=== PATIENT | female | born 1950 | race Caucasian/White ===

== ENCOUNTER 2022-07-18 10:51 | Emergency (ER) | payer MEDICARE, SELFPAY ==
[2022-07-18 11:24] VITALS: BP 187/81; PULSE 97; RESP 16; TEMP 36.8; O2SAT 98
--- NOTE | 2022-07-18 12:52 | ED.FALL ---
HPI - Fall General Chief Complaint: Fall Stated Complaint: fall, head injury, no blood thinners Time Seen by Provider: 07/18/22 11:30 Source: patient and family Mode of arrival: ambulatory Limitations: no limitations History of Present Illness HPI Narrative: This is a 71 year old female that presents to the ER after a ground level fall last night with head injury. Reports she tripped over a stool and fell forward. She is unsure if she hit her head on the floor or the stool. She did not lose consciousness. She is not on any blood thinners. Has a laceration on her forehead. No other focal injuries or areas of pain. Denies visual changes, vomiting, numbness, or weakness. Related Data Home Medications Medication Instructions Recorded Confirmed No Home Medications 07/18/22 07/18/22 Allergies Allergy/AdvReac Type Severity Reaction Status Date / Time No Known Allergies Allergy Verified 07/18/22 11:24 Review of Systems Review of Systems: CONSTITUTIONAL: Denies fever EYES: Denies visual changes GASTROINTESTINAL: Denies vomiting MUSCULOSKELETAL: Denies back pain, joint pain, or myalgia. NEUROLOGIC: Denies headache, numbness, or weakness. All systems reviewed & are unremarkable except as noted in HPI and below PMFSH Past Medical History Medical History (Updated 07/18/22 @ 13:26 by Katia Moyer PA-C) No active medical problems Social History Social History (Updated 07/18/22 @ 12:55 by Katia Moyer PA-C) Smoking status: Never smoker Exam Narrative: GENERAL: Elderly, well-nourished, and in no acute distress. HEAD: Normocephalic. 3cm irregular, superficial laceration over the mid forehead EYES: PERRLA and EOMI. ENT: Nares clear, no rhinorrhea or epistaxis. Mucous membranes moist. Oropharynx without tonsillar hypertrophy exudate or other lesions. Bilateral TMs pearly soliz non-bulging NECK: Supple. No adenopathy or masses. No midline spinal tenderness CHEST: Clear to auscultation. No respiratory distress. No wheezes rales or rhonchi HEART: Regular rate and rhythm. No murmur heard. Normal peripheral pulses. EXTREMITIES: Normal range of motion. No edema or obvious deformity. Strength equal in bilateral upper and lower extremities (5/5) SKIN: Warm, dry, no rash. NEURO: No focal deficits. Alert and oriented x3. Cranial nerves II through XII grossly intact PSYCH: Normal mood and affect Course Vital Signs Vital signs: Vital Signs Temperature 98.3 F 07/18/22 11:24 Pulse Rate 97 07/18/22 11:24 Respiratory Rate 16 07/18/22 11:24 Blood Pressure 187/81 H 07/18/22 11:24 Pulse Oximetry 98 07/18/22 11:24 Temperature 98.3 F 07/18/22 11:24 Pulse Rate 80 07/18/22 13:00 Respiratory Rate 16 07/18/22 11:24 Blood Pressure 170/81 H 07/18/22 13:00 Pulse Oximetry 98 07/18/22 11:24 Procedures Laceration Laceration 1: Date: 07/18/22 Time: 12:56 Site: face Size (cm): 3 Description: irregular Depth: simple, single layer Local Anesthetic: none Pre-repair: irrigated extensively ====== Skin Level ====== Skin layer closed with: dermabond ====== Subcutaneous Layer ====== ====== Muscle Layer ====== ====== Tendon Layer ====== MDM - Fall MDM Narrative Medical decision making narrative: Patient presents to the emergency department after a ground-level fall last night with a head injury. She denies any vision changes, vomiting or numbness. She is not on any blood thinners. She did not lose consciousness. She is neurovascularly intact today. Due to patient's age and head injury with contusion I did recommend a CT scan of the brain to rule out any intracranial pathology. I explained the reasons for doing so. She refuses at this time. She was instructed to return for any worrisome symptoms. Her laceration was thoroughly irrigated. I did apply some Dermabond to it as it was fairly superficial. She wa
[2022-07-18] MEDS: TETANUS,DIPHTHERIA,AC PERTUSSIS ADULT (0.5 ML) BOOSTRIX IM (12:58)
[2022-07-18 13:00] VITALS: BP 170/81; PULSE 80
== END 2022-07-18 13:41 | disposition home or self-care (01) ==
PROVIDERS: Emergency Provider Physician Assistant
DX: S01.81XA Laceration without foreign body of other part of head, initial encounter (principal); R03.0 Elevated blood-pressure reading, without diagnosis of hypertension; W01.0XXA Fall on same level from slipping, tripping and stumbling without subsequent striking against object, initial encounter; Z23 Encounter for immunization
CPT/HCPCS: 12013; 90471; 90715; 99282

== ENCOUNTER 2024-03-10 11:07 | Emergency (ER) | payer MEDICARE, SELFPAY ==
[2024-03-10 11:09] VITALS: PULSE 93; RESP 18; TEMP 36.4; O2SAT 98
--- NOTE | 2024-03-10 11:39 | ED_ITS ---
HPI - General Adult General Chief complaint: Unspecified Stated complaint: confusion, urinary urgency Time Seen by Provider: 03/10/24 11:24 History of Present Illness HPI narrative: Patient is a 73-year-old female who presents ER with concerns for UTI. Reports she has been having urinary incontinence over last 2 weeks. She has become increasingly confused. She is orient x3 but has missed steps where if she wants some place last week she went thinks she went there yesterday. She has been taking a bladder [id number] supplement try to treat her symptoms. No fevers or chills or sweats. No abdominal pain. No injuries reported. Related Data Allergies Allergy/AdvReac Type Severity Reaction Status Date / Time No Known Allergies Allergy Verified 03/10/24 11:34 Review of Systems Review of Systems: All systems reviewed & are unremarkable except as noted in HPI and below Constitutional: Constitutional: Reports no additional constitutional complaints Gastrointestinal: Gastrointestinal: Reports no additional gastrointestinal complaints Genitourinary: Genitourinary: Reports no additional female genitourinary complaints ON LICENSE OF [facility] Past Medical History Medical History (Updated 03/10/24 @ 15:06 by Marc Hanley MD) TIA (transient ischemic attack) Social History Social History (Updated 07/18/22 @ 12:55 by Katia Moyer PA-C) Smoking status: Never smoker Exam Narrative: GENERAL: Well-appearing, well-nourished, and in no acute distress. HEAD: Normocephalic, atraumatic. ENT: Mucous membranes moist. CHEST: Clear to auscultation. No respiratory distress. HEART: Regular rate and rhythm. Normal peripheral pulses. ABDOMEN: Soft, nontender, nondistended. EXTREMITIES: Normal range of motion. No edema. SKIN: Warm, dry, no rash. NEURO: Alert and oriented x3. PSYCH: Normal mood and affect. Course Vital Signs Vital signs: Vital Signs Temperature 97.5 F L 03/10/24 11:09 Pulse Rate 93 03/10/24 11:09 Respiratory Rate 18 03/10/24 11:09 Pulse Oximetry 98 03/10/24 11:09 Oxygen Delivery Room Air 03/10/24 11:09 Temperature 97.5 F L 03/10/24 11:09 Pulse Rate 64 03/10/24 13:02 Respiratory Rate 12 03/10/24 13:02 Blood Pressure 186/85 H 03/10/24 13:02 Pulse Oximetry 98 03/10/24 13:02 Oxygen Delivery Room Air 03/10/24 11:09 Medical Decision Making Vital Signs Vital Signs: Vital Signs Temperature 97.5 F L 03/10/24 11:09 Pulse Rate 93 03/10/24 11:09 Respiratory Rate 18 03/10/24 11:09 Pulse Oximetry 98 03/10/24 11:09 Oxygen Delivery Room Air 03/10/24 11:09 Temperature 97.5 F L 03/10/24 11:09 Pulse Rate 64 03/10/24 13:02 Respiratory Rate 12 03/10/24 13:02 Blood Pressure 186/85 H 03/10/24 13:02 Pulse Oximetry 98 03/10/24 13:02 Oxygen Delivery Room Air 03/10/24 11:09 Lab Data 03/10/24 11:59 03/10/24 11:59 Labs: Lab Results 03/10/24 03/10/24 Range/Units 11:53 11:59 WBC 6.8 (4.5-10.0) K/mm3 RBC 5.14 (4.2-5.4) M/mm3 Hgb 14.8 (12.0-15.0) g/dL Hct 44.1 (37.0-47.0) % MCV 85.8 (80-100) fl MCH 28.8 (26-34) pg MCHC 33.6 (32-36) g/dl RDW 12.4 (11.5-14.5) % Plt Count 257 (150-375) k/mm3 MPV 10.3 (7.4-10.4) fl Immature Gran % (Auto) 0.4 (0-0.5) % Neut % (Auto) 62.5 (45.5-73.1) % Lymph % (Auto) 27.0 (18.3-44.2) % [place] % (Auto) 7.3 (2.6-8.5) % Eos % (Auto) 1.9 (0-4.4) % Baso % (Auto) 0.9 (0.2-1.2) % Lymph # (Auto) 1.84 (0.9-3.2) K/mm3 [place] # (Auto) 0.5 (0.1-0.6) K/mm3 Eos # (Auto) 0.1 (0-0.3) K/mm3 Baso # (Auto) 0.1 (0.0-0.1) K/mm3 Abs Immat Gran (auto) 0.03 (0.00-0.031) K/mm3 Absolute Neuts (auto) 4.3 (1.3-6.7) K/mm3 Absolute Nucleated RBC 0.000 (0.0-0.012) K/mm3 Nucleated RBC % 0.0 (0.0-0.2) % Sodium 142 (137-145) mmol/L Potassium 3.7 (3.4-5.0) mmol/L Chloride 103 (98-107) mmol/L Carbon Dioxide 31 H (22-30) mmol/L Anion Gap 8 (4-12) mmol/L BUN 11 (7-17) mg/dL Creatinine 0.60 L (0.7-1.0) mg/dL Estim Creat Clear Calc 68 ml/min Estimated GFR > 60 (59 - ) Glucose 104 (65-110) mg/dL Calcium 9.8 (8.4-10.2) mg/dL Total Bilirubin 0.4 (0.2-1.3) mg/dL AST 21 (14-36) U/L ALT 19 (6-35) U/L Alkaline Phosphatase 101 (38-126) U/L Total Protein 8.0 (6.3-8.2) g/dL Albumin 4.4 (3.5-5.1) g/dL Urine Color Yellow (Yellow) Urine Appearance Clear (Clear) Urine pH 6.5 (5.0-9.0) Ur Specific [place] 1.007 (1.001-1.035) Urine Protein Negative (Negative) mg/dL Urine Glucose (UA) Negative (Negative) mg/dL Urine Ketones Negative (Negative) mg/dL Ur Blood (Man) Negative (Negative) Urine Nitrate Negative (Negative) Urine Bilirubin Negative (Negative) Urine Urobilinogen 0.2 (<2.0) mg/dL Leukocyte Esterase Rfl 2+ H (Negative) TIESHA/UL Urine RBC 0-2 (0-2) /hpf Urine WBC 6-10 H (0-3) /hpf Ur Squamous Epith Cells None seen (Few) /hpf Urine Bacteria None seen /hpf Urine Casts 0-2 Discharge Plan Discharge Clinical Impression: Acute UTI Patient Disposition: Home, Self-Care Condition: Stable Instructions: Urinary Tract Infection in Women (ED) Additional Instructions: You should return to the emergency department if you develop severe nausea and vomiting and are unable to keep liquids down, if you develop severe back/flank or stomach pain, or if your symptoms are not clearly improving at home. Prescriptions: New cephalexin 500 mg capsule 500 mg PO Q12H Qty: 10 0RF Follow-up/Referrals: Arie Huff MD [Physician] - 1 Week UNKNOWN,DOCTOR [Primary Care Provider] -
[2024-03-10 11:46] VITALS: BP 190/88; PULSE 75; RESP 12; O2SAT 98
[2024-03-10 12:03] LABS: Basophils Absolute Auto 0.1 K/mm3 (0.0-0.1); Basophils Percent Auto 0.9 % (0.2-1.2); Eosinophils Absolute Auto 0.1 K/mm3 (0-0.3); Eosinophils Percent Auto 1.9 % (0-4.4); Hematocrit 44.1 % (37.0-47.0); Hemoglobin 14.8 g/dL (12.0-15.0); Immature Granulocyte Absolute 0.03 K/mm3 (0.00-0.031); Immature Granulocyte Percent A 0.4 % (0-0.5); Lymphocytes Absolute Auto 1.84 K/mm3 (0.9-3.2); Mean Corpuscular HGB Conc 33.6 g/dl (32-36); Mean Corpuscular Hemoglobin 28.8 pg (26-34); Mean Corpuscular Volume 85.8 fl (80-100); Mean Platelet Volume 10.3 fl (7.4-10.4); Monocytes Absolute Auto 0.5 K/mm3 (0.1-0.6); Monocytes Percent Auto 7.3 % (2.6-8.5); Neutrophils Absolute Auto 4.3 K/mm3 (1.3-6.7); Neutrophils Percent Auto 62.5 % (45.5-73.1); Platelet Count Result 257 k/mm3 (150-375); Red Blood Count 5.14 M/mm3 (4.2-5.4); Red Cell Distribution Width 12.4 % (11.5-14.5); White Blood Count 6.8 K/mm3 (4.5-10.0)
[2024-03-10 12:05] LABS: Add Urine Microscopic? YES; Appearance Urine Clear (Clear); Bacteria Urine None Seen /hpf; Bilirubin Urine Negative (Negative); Blood Urine Negative (Negative); Color Urine Yellow (Yellow); Glucose Urine UA Negative (Negative); Ketones Urine Negative (Negative); Leukocyte Esterase Ur 2+ LEU/UL (Negative); Nitrate Urine Negative (Negative); Non Pathogenic Casts 0-2; Protein Urine Negative (Negative); RBC Urine 0-2 /hpf (0-2); Specific Grav Ur 1.007 (1.001-1.035); Squamous Epithelial Cell Urine None Seen /hpf (Few); Urobilinogen Urine 0.2 mg/dL (<2.0); pH Urine 6.5 (5.0-9.0)
[2024-03-10 12:14] LABS: Alanine Aminotransferase 19 U/L (6-35); Albumin Level 4.4 g/dL (3.5-5.1); Alkaline Phosphatase 101 U/L (38-126); Anion Gap 8 mmol/L (4-12); Aspartate Amino Transferase 21 U/L (14-36); Bilirubin,Total 0.4 mg/dL (0.2-1.3); Blood Urea Nitrogen 11 mg/dL (7-17); Calcium 9.8 mg/dL (8.4-10.2); Carbon Dioxide 31 mmol/L (22-30); Chloride 103 mmol/L (98-107); Estimated CRCL calculation 68 ml/min; Estimated Glomerular Filt Rate > 60; Glucose 104 mg/dL (65-110); Potassium 3.7 mmol/L (3.4-5.0); Sodium 142 mmol/L (137-145)
[2024-03-10 12:33] VITALS: BP 190/77; PULSE 67; RESP 13; O2SAT 94
[2024-03-10 13:02] VITALS: BP 186/85; PULSE 64; RESP 12; O2SAT 98
== END 2024-03-10 15:22 | disposition home or self-care (01) ==
PROVIDERS: Emergency Provider Emergency Medicine
DX: N39.0 Urinary tract infection, site not specified (principal); Z86.73 Personal history of transient ischemic attack (TIA), and cerebral infarction without residual deficits
CPT/HCPCS: 36415; 80053; 81001; 85025; 87086; 99283